=== PATIENT | male | born 1945 | race Caucasian/White ===

== ENCOUNTER 2018-12-10 05:52 | Inpatient (IN) ==
--- NOTE | 2018-12-02 10:10 | EKG Report ---
Test Performed on : 12/02/2018 09:30:45 AM Test Reason : PAT Blood Pressure : / mmHG Vent. 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 Right bundle branch block has replaced Nonspecific intraventricular block Confirmed by Laura LOWE, [place] ([id number]) on 12/02/2018 5:18:37 PM
[2018-12-02 10:19] LABS: URINE SOURCE CLEAN CATCH
[2018-12-02 10:20] LABS: BASO# 0.05 X1000 (0.0-0.2); BASO% 0.7 % (0.0-0.8); EOS# 0.21 X1000 (0.0-0.7); EOS% 2.9 % (0.0-10.0); HEMATOCRIT 43.5 % (42.0-52.0); HEMOGLOBIN 14.6 g/dL (14.0-18.0); LYMPH# 1.31 X1000 (1.2-3.4); LYMPH% 18.3 % (20.5-51.1); MCH 33.3 PG (27-31); MCHC 33.6 g/dL (33-37); MCV 99.1 FL (81-99); MONO# 0.51 X1000 (0.11-0.59); MONO% 7.1 % (1.7-9.3); MPV 11.8 FL (7.4-10.4); NEUT# 5.09 X1000 (1.4-6.5); PLT 167 X1000 (130-400); RBC 4.39 XMIL (4.7-6.1); RDW 13.2 % (11.5-14.5); WBC 7.17 X1000 (4.8-10.8)
[2018-12-02 10:29] LABS: BILIRUBIN URINE NEGATIVE (NEGATIVE); BLOOD URINE NEGATIVE (NEGATIVE); COLOR YELLOW; GLUCOSE URINE NEGATIVE (NEGATIVE); KETONE URINE NEGATIVE (NEGATIVE); LEUKOCYTES URINE NEGATIVE (NEGATIVE); NITRITE URINE NEGATIVE (NEGATIVE); PH URINE 6.5; PROTEIN URINE NEGATIVE (NEGATIVE); SP GRAVITY URINE 1.017; TURBIDITY URINE CLEAR (CLEAR); UROBILINOGEN URINE NORMAL (NORMAL)
[2018-12-02 10:32] LABS: INR 1.78; UR EPITHELIAL CELLS <10 /HPF (<10); URINE BACTERIA NEGATIVE /HPF; URINE RBC <10 /HPF (<10); URINE WBC <10 /HPF (<10)
[2018-12-02 10:33] LABS: PTT 34.7 Seconds (22.3-41.8)
[2018-12-02 11:08] LABS: AGAP 9; BUN 9 mg/dL (8-22); CALCIUM 8.8 mg/dL (8.8-10.2); CHLORIDE 106 mmol/L (98-107); COSMO 282; CREATININE 0.8 mg/dL (0.7-1.2); ESTIMATED GFR > 60; GLUCOSE 62 mg/dL (70-104); POTASSIUM 4.5 mmol/L (3.5-5.1); SODIUM 143 mmol/L (136-145); TCO2 28 mmol/L (25-35)
[2018-12-10] MEDS ORDERED: COLACE ONE (06:39)
[2018-12-10] MEDS ORDERED: CELEBREX ONE (06:40)
[2018-12-10] MEDS ORDERED: PEPCID ONE (06:40)
[2018-12-10] MEDS ORDERED: LYRICA ONE (06:40)
[2018-12-10] MEDS ORDERED: LR 1,000 ML ONE (06:40)
[2018-12-10] MEDS ORDERED: REGLAN ONE (06:40)
[2018-12-10] MEDS ORDERED: KEFZOL 2 GM/D5W 2 GM/50 ML IVPB ONE (06:41)
[2018-12-10] MEDS ORDERED: XYLOCAINE-MPF 2% ONE (07:36)
[2018-12-10] MEDS ORDERED: AMIDATE ONE (07:36)
[2018-12-10] MEDS ORDERED: QUELICIN (DOSE) ONE (07:36)
[2018-12-10] MEDS ORDERED: SENSORCAINE-MPF 0.5%/EPI 1:200,000 ONE (07:54)
[2018-12-10] MEDS ORDERED: TORADOL ONE (07:54)
[2018-12-10] MEDS ORDERED: SODIUM CHLORIDE 0.9% ONE (07:54)
[2018-12-10] MEDS ORDERED: CYKLOKAPRON 1,000 MG/NS 1,000 MG/100 ML IVPB ONE (07:54)
[2018-12-10] MEDS ORDERED: DURAMORPH ONE (07:54)
[2018-12-10] MEDS ORDERED: NEOSPORIN G.U. IRRIGANT ONE (07:55)
[2018-12-10] MEDS ORDERED: EXPAREL 1.3% ONE (07:55)
[2018-12-10 09:27] LABS: URINE SOURCE CATH
[2018-12-10] MEDS ORDERED: SODIUM CHLORIDE 0.9% 10 ML ONE (09:31)
[2018-12-10] MEDS ORDERED: NEO-SYNEPHRINE ONE (09:31)
[2018-12-10 09:35] LABS: BILIRUBIN URINE NEGATIVE (NEGATIVE); BLOOD URINE NEGATIVE (NEGATIVE); COLOR YELLOW; GLUCOSE URINE NEGATIVE (NEGATIVE); KETONE URINE NEGATIVE (NEGATIVE); LEUKOCYTES URINE NEGATIVE (NEGATIVE); NITRITE URINE NEGATIVE (NEGATIVE); PH URINE 5.5; PROTEIN URINE NEGATIVE (NEGATIVE); SP GRAVITY URINE 1.022; TURBIDITY URINE CLEAR (CLEAR); UR EPITHELIAL CELLS <10 /HPF (<10); URINE BACTERIA NEGATIVE /HPF; URINE RBC <10 /HPF (<10); URINE WBC <10 /HPF (<10); UROBILINOGEN URINE NORMAL (NORMAL)
[2018-12-10] MEDS ORDERED: OFIRMEV 1000 MG/ISOTONIC SOLN 1,000 MG/100 ML BOTTLE ONE (09:44)
[2018-12-10] MEDS ORDERED: DECADRON ONE (09:58)
[2018-12-10] MEDS ORDERED: ZOFRAN ONE (10:08)
[2018-12-10] MEDS ORDERED: NS 1,000 ML ONE (10:24)
[2018-12-10] MEDS ORDERED: MORPHINE ONE ×2 (10:40→11:16)
--- NOTE | 2018-12-10 10:40 | OPERATIVE NOTE ---
PROCEDURE DATE: 12/10/2018 PREOPERATIVE DIAGNOSIS: Right inguinal glenohumeral arthritis. PROCEDURE: Right reverse total shoulder arthroplasty with DePuy Delta XTEND size 14 press-fit stem, a 42 + 9 humeral cup, a 42 eccentric Glenosphere, and a standard Mediglene. SURGEON: Deandre Sandoval MD. RUBBER GOODS REPAIRER: Irasema Prasad. SECOND CROP GRAIN OR LIVESTOCK FARMER: Duke Maciel RN. ANESTHESIA: General. IV FLUIDS: 1300 mL lactated Ringer's. ESTIMATED BLOOD LOSS: 175 mL. COMPLICATIONS: None. INDICATION: The patient is a pleasant 73-year-old male with a chronic history of pain and discomfort in his right shoulder. X-rays revealed significant degenerative osteoarthritis. Recommendation to proceed with right reverse shoulder arthroplasty was offered. Risks and benefits of surgery were explained, including the risks of anesthesia, , bleeding, infection, failure to relieve pain, postoperative stiffness, nerve injury, blood clots, and other imponderables. All questions were answered. The patient's family wished proceed with surgery. DETAILS OF OPERATION: Patient was taken to the operating room and placed supine on operating table. Once adequate anesthesia was obtained, patient's was placed in semi- Engle beach-chair position. The right shoulder was subsequently prepped and draped in usual sterile fashion. A standard deltopectoral incision was made with a skin knife. Hemostasis was obtained using electrocautery. The deltopectoral interval was then developed. The clavipectoral fascia was elevated, and the retractor were placed. Approximately 1 cm medial to the insertion of the subscapular tendon, was released. Stay sutures were placed medially. Shoulder was then reduced anteriorly. Further release of the posterior superior aspect of the rotator cuff was performed. Patient has significant osteoarthritis. A starting reamer was then passed. An intramedullary reaming was conducted up to size 14. Intramedullary guide was then placed in position. The humeral head was resected after the cutting block was pinned in position. Inferior osteophyte was removed with a small rongeur. A protective disk was then placed. Attention was then turned to the glenoid. Circumferential dissection was then performed with a deep knife. A guide was then placed in position. Guidepins were placed. Reaming was then conducted. The central hole was then dilated. The wound was copiously irrigated once again with antibiotic pulsatile lavage. A standard Metaglene was then impacted into position. Three locking screws and 1 nonlocking screw was placed. Had good purchase. Wound was copiously irrigated once again. A 42 eccentric glenosphere was then placed with the eccentricity placed inferiorly. Attention was then turned the humerus, where an intramedullary guide was placed in position in approximately 15 degrees of retroversion and the proximal humerus was reamed. After this had been performed, copious irrigation with antibiotic pulsatile lavage. A size 14 press-fit stem was then impacted autologous bone grafting obtained from the humeral head. It had good purchase. The 42 + 9 non- humeral cup was not was deemed to be the correct size. The trial cup was removed. The wound was copiously once again with antibiotic pulsatile lavage. The 42 + 9 non-humeral cup was impacted on the stem. The shoulder was reduced, carried through range of motion, had excellent range of motion and stability. Exparel was placed in the deep soft tissue. The wound was copiously once again. A #2 FiberWire was then used to repair the subscapularis tendon. The remaining Exparel was placed in deep soft tissue, as well as was the subcutaneous tissue. Irrigation was then performed once again. A 2-0 Vicryl was then used to repair the subcutaneous tissue, followed by a running 2-0 Prolene. Benzoin and Steri-Strips applied. Adaptic, sterile 4 x 4, ABD pad, and tape the right shoulder, followed by shoulder immobilizer. All counts were correct. The patient tolerated the procedure well and was transferred to recovery room in stable condition. cc: Deandre Sandoval MD MTDD
--- NOTE | 2018-12-10 13:03 | Diag Imaging Result Doc PS360 ---
SHOULDER 1 VIEW RIGHT - 12/10/2018 INDICATION: R shoulder surgery TECHNIQUE: COMPARISON: None FINDINGS: There has been placement of a right total shoulder arthroplasty. Alignment is anatomic. No hardware fracture or loosening. There is moderate degeneration of the acromioclavicular joint. IMPRESSION: No complication. Electronically signed by Eh Ríos 12/10/2018 1:01 PM
[2018-12-10] MEDS ORDERED: NS 1,000 ML IV SCH (14:15)
[2018-12-10] MEDS ORDERED: MORPHINE IV PRN ×3 (14:15)
[2018-12-10] MEDS ORDERED: ZOFRAN PO PRN (14:15)
[2018-12-10] MEDS ORDERED: OXY IR PO PRN ×2 (14:15)
[2018-12-10] MEDS ORDERED: CYKLOKAPRON 1,000 MG in NS 100 ML IV ONE (15:00)
[2018-12-10] MEDS: TYLENOL PO SCH ×2 (15:38→21:21)
[2018-12-10] MEDS: KEFZOL 2 GM/D5W 2 GM/50 ML IVPB IV SCH ×2 (15:50→22:29)
[2018-12-10 17:17] LABS: INR 1.05; PROTIME 14.6 Seconds (11.0-16.0)
[2018-12-10] MEDS ORDERED: COUMADIN PO SCH (21:00)
[2018-12-10] MEDS ORDERED: PERIDEX MT SCH (21:00)
[2018-12-10] MEDS ORDERED: MEVACOR PO SCH (21:00)
[2018-12-10] MEDS: BETAPACE PO SCH (21:21)
[2018-12-10] MEDS: PERIDEX MT SCH (21:22)
[2018-12-10] MEDS: LOTENSIN PO SCH (21:23)
[2018-12-10] MEDS: COLACE PO SCH (22:30)
[2018-12-11] MEDS: PERIDEX MT SCH ×2 (02:02→09:03)
[2018-12-11 05:59] LABS: INR 1.06; PROTIME 14.6 Seconds (11.0-16.0)
[2018-12-11 06:12] LABS: AGAP 10; BUN 14 mg/dL (8-22); CALCIUM 7.7 mg/dL (8.8-10.2); CHLORIDE 105 mmol/L (98-107); COSMO 278; CREATININE 0.8 mg/dL (0.7-1.2); ESTIMATED GFR > 60; GLUCOSE 98 mg/dL (70-104); POTASSIUM 3.7 mmol/L (3.5-5.1); SODIUM 139 mmol/L (136-145); TCO2 24 mmol/L (25-35)
[2018-12-11 06:25] LABS: HEMATOCRIT 34.2 % (42.0-52.0); HEMOGLOBIN 11.3 g/dL (14.0-18.0)
--- NOTE | 2018-12-11 06:37 | PROGRESS NOTE ---
DATE: 12/11/2018 SUBJECTIVE: The patient is a pleasant 73-year-old male, who is 1 day status post right reverse shoulder arthroplasty. He is currently resting comfortably. OBJECTIVE: The patient's right upper extremity wound looks good. There is no signs or symptoms of infection. LABORATORY DATA: His hemoglobin is 11.2. Hematocrit is 33.8. His PT is 14.6, and his INR is 1.06. IMPRESSION: Postoperative day #1 status post right reverse total shoulder arthroplasty. PLAN: At this point, will discontinue his Torres and Hep-Lock his IV. The patient will be bridged with Lovenox per Dr. Raines. We will allow him to be discharged home. We will arrange for outpatient physical therapy. cc: Deandre Sandoval MD
[2018-12-11 08:10] VITALS: BP 127/72
[2018-12-11] MEDS ORDERED: LOVENOX SUBQ ONE (08:54)
[2018-12-11] MEDS ORDERED: KLOR-CON PO SCH (09:00)
[2018-12-11] MEDS ORDERED: COENZYME Q10 PO SCH (09:00)
[2018-12-11] MEDS: TYLENOL PO SCH (09:02)
[2018-12-11] MEDS: BETAPACE PO SCH (09:02)
[2018-12-11] MEDS: LOTENSIN PO SCH (09:02)
[2018-12-11] MEDS: COLACE PO SCH (09:03)
[2018-12-12] MEDS ORDERED: LASIX PO SCH (09:00)
== END 2018-12-11 11:40 | disposition home or self-care (01) | DRG 483 ==
LOC: SURHOLD 05:52 → 4N 12:10
PROVIDERS: ADMIT Orthopaedic Surgery Adult Reconstructive Orthopaedic Surgery; ATTEND Orthopaedic Surgery Adult Reconstructive Orthopaedic Surgery
CPT/HCPCS: 73020; 80048; 81001; 85014; 85018; 85025; 85610; 85730; 86850; 86900; 86901; 88305; 88311; 93005; 93010; 94799; A9270; C9290; J0131; J0330; J0690; J1100; J1650; J1885; J2270; J2274; J2275; J2370; J2405; J7030; J7120; Q9974